=== PATIENT | female | born 1960 | race African-American/Black ===

== ENCOUNTER 2023-08-31 10:37 | Inpatient (IN) ==
--- NOTE | 2023-08-31 10:41 | Emergency Department Note ---
Impression & Plan SVT (supraventricular tachycardia), History of pulmonary embolism, Elevated troponin, Metabolic acidosis, normal anion gap (NAG) ED Provider Note NAME: JENELLE MENDOZA AGE: 62 SEX: F : 1960 ARRIVES VIA: Ambulance INFORMANT: Patient, triage note, prior records ED PROVIDER(S): Stan Delong MD CHIEF COMPLAINT: Elevated heart rate, dizziness, shortness of breath, outpatient referral MEDICAL DECISION MAKING: Patient presented due to concern for elevated heart rate was noted to be in SVT. IV was established and blood work was obtained. Patient was given 6 mg of IV adenosine the patient reverted into a sinus rhythm. Repeat EKG obtained which confirmed patient sinus rhythm. Blood work shows a normal white count H&H and platelet count kidney function is unremarkable. Non-anion nonanion gap metabolic acidosis noted with the patient does have a low bicarb but is hyperchloremic. I did discuss this w/ Dr. King. He stated he just recommended outpatient follow-up and repeat blood work to assess the NAGMA. Patient w/ elevated troponin. Patient's initial EKGs did show ST depressions in the lateral leads. This has resolved since we given the adenosine and resumption of a normal sinus rhythm likely demand from elevated HR. Given the patient's positive troponin and I did speak with the on-call hospitalist service CHANI Dickerson and the patient was admitted to the medicine service. I did inform the patient the patient's family the findings and recommendations and they are currently comfortable with plan of care. Patient does have a prior history of PE not on any anticoagulation they did recently drive to [facility] but no calf pain or asymmetry no evidence of DVT on exam. Critical Care: I have personally spent 35 minutes of critical care time in direct management of this patient. This includes bedside care, interpretation of diagnostic studies, and testing, discussion with consultants, patient, and family members, and other require inpatient management activities. This 35 minutes is in excess of all separately billable procedures. Discussion w/ other healthcare providers: Dr. Lujan with nephrology CHANI Dickerson and Dr. Cervantes Prior /Outside records reviewed: I reviewed a prior PCP visit note show the patient did have a prior history of PE noted but would need 6 months of blood thinning medications at that time. PCP visit note is from Dr. Denis from June 24, 2021 Differential diagnosis: Benign positional vertigo, dehydration, hypovolemia, anemia, infection, hypoglycemia, electrolyte abnormalities, arrhythmia, tox among others were considered. Diagnostics, as interpreted by me: ECG: Prehospital EKG noted heart rate 176 with a likely SVT with a normal axis normal QRS duration slight depressions in the lateral leads. Emergency department EKG interpreted by myself Supraventricular tachycardia rate of 171, normal axis, no ST elevations, ST depressions in the lateral leads normal QRS duration. Repeat EKG interpreted by myself Normal sinus rhythm, rate 79, normal intervals, normal axis no ST elevations or TWI. Cardiac monitoring: An order was placed for continuous cardiac monitoring. The monitor shows a rate of 175 with tachycardic and regular rhythm. Patient was placed on pulse oximetry Medical decision rules: None Imaging studies: I informally interpreted the patient's chest x-ray does not show obvious pneumonia or pneumothorax with formal report to follow. HPI: Patient presents due to concern for palpitations lightheadedness dizziness and shortness of breath. The patient states that she noticed this this morning when she was getting up and felt this to be positional when she bent over to do tie her shoes she had worsening symptoms. Patient states that she does feel improved compared to prior. Patient does have a prior history of A-fib. Patient denies any chest pains. The patient's lightheadedness dizziness and shortness of breath have improved compared to prior. Patient states that she does take her metoprolol and did take this morning. Currently not on blood thinning medication. The patient did have prior follow-up with Dr. Ramirez as well as another comber fixer but currently does not have an established comber fixer at [facility]. Patient denies any nausea vomiting or diarrhea. The patient does have prior history of thyroid disease and does take levothyroxine which was increased about 3 months ago from 50 mcg to 88 mcg. Patient denies any alcohol tobacco or drug use. She states that she is compliant with her medications PAST MEDICAL HISTORY: See Below PAST SURGICAL HISTORY: See Below SOCIAL HISTORY: See Below HOME MEDICATIONS: See Below ALLERGIES: See Below VITALS: See Below PHYSICAL EXAMINATION: GENERAL: NAD, non-toxic. EYE EXAM: Normal conjunctiva. PERRL, no anisocoria and EOM's grossly intact w/o pain. OROPHARYNX: Moist mucus membranes, grossly normal dentition. NECK: Trachea midline, no stridor. Supple, no nuchal rigidity, no adenopathy, non-tender. No signs of meningismus. FROM of the neck with good chin to chest and neck extension. LUNGS: Clear to auscultation. Normal chest wall mechanics. HEART: NSR, no MRG. ABDOMEN: Abdomen soft, non-tender, no masses, no rebound or guarding. BACK: No CVA TTP. SKIN: No rashes and no bruising. UPPER EXTREMITIES: Upper extremities are grossly normal. LOWER EXTREMITIES: Grossly normal, no edema. NEURO EXAM: A&O x3, cranial nerves II-XII grossly intact, normal speech, moves all 4 extremities. Past Med/Surg History Problem List (Updated 08/31/23 @ 14:54 by Stan Delong MD) Metabolic acidosis, normal anion gap (NAG) (Acute) Elevated troponin (Acute) History of pulmonary embolism (Acute) SVT (supraventricular tachycardia) (Acute) Pelvic pain Increased frequency of urination Osteoarthritis of knees, bilateral Morbid obesity with BMI of 50.0-59.9, adult Subclinical hypothyroidism Multiple thyroid nodules Cervical cancer screening Hypertension Fibroids Endometrial thickening on ultrasound Surgical History H/O hernia repair Hx laparoscopic cholecystectomy History of bilateral tubal ligation Family History Aunt Breast cancer maternal Denies family history of Ovarian cancer Colorectal cancer Social History Smoking Status: Former smoker Tobacco Type: Cigarettes Do You Dip or Chew Tobacco: No; Preferred Language: Macedonian Feels Safe at Home: Yes Allergies Allergies Allergy/AdvReac Type Severity Reaction Status Date / Time No Known Allergies Allergy Verified 05/29/23 10:44 Home Meds Home Medications Medication Instructions Recorded Confirmed metoprolol succinate 25 mg 25 mg PO QAM 02/16/20 05/29/23 tablet,extended release 24 hr acetaminophen 500 mg tablet 1,000 mg PO Q6H PRN Pain 08/13/22 05/29/23 (Tylenol Extra Strength) Previous Rx's Medication Instructions Recorded levothyroxine 88 mcg tablet 88 mcg PO DAILY #90 tabs 03/27/23 Results & Data (ED) Vital Signs Vital Signs - 24 hr 08/31/23 10:41 08/31/23 10:54 08/31/23 10:55 Temperature 36.6 C Temperature Source Oral Pulse Rate 179 H 170 H 171 H Pulse Rate [Apical] Pulse Rate from SpO2 Sensor 172 H Pulse Rhythm [Apical] Pulse Strength [Apical] Respiratory Rate 18 20 Respiratory Effort / Characteristics Non-Labored Spontaneous Respiratory Depth Normal Respiratory Pattern Regular Blood Pressure 115/87 Blood Pressure [Right Arm] Blood Pressure Mean 96 Blood Pressure Mean [Right Arm] Blood Pressure Position Sitting Blood Pressure Position [Right Arm] Pulse Oximetry 100 98 Oxygen Delivery Method Room Air Sepsis Recent Fever Within 48 Hours No Sepsis New/Unexplained Change in Mental Status No Sepsis Action Taken by Nursing No Action Required 08/31/23 11:03 08/31/23 11:10 08/31/23 11:12 Temperature Temperature Source Pulse Rate 78 81 76 Pulse Rate [Apical] Pulse Rate from SpO2 Sensor 79 78 Pulse Rhythm [Apical] Pulse Strength [Apical] Respiratory Rate 27 H 20 Respiratory Effort / Characteristics Respiratory Depth Respiratory Pattern Blood Pressure 109/85 Blood Pressure [Right Arm] Blood Pressure Mean 93 Blood Pressure Mean [Right Arm] Blood Pressure Position Blood Pressure Position [Right Arm] Pulse Oximetry 99 100 Oxygen Delivery Method Sepsis Recent Fever Within 48 Hours Sepsis New/Unexplained Change in Mental Status Sepsis Action Taken by Nursing 08/31/23 11:27 08/31/23 11:30 08/31/23 11:42 Temperature Temperature Source Pulse Rate 72 75 Pulse Rate [Apical] Pulse Rate from SpO2 Sensor 73 74 Pulse Rhythm [Apical] Pulse Strength [Apical] Respiratory Rate 14 12 Respiratory Effort / Characteristics Respiratory Depth Respiratory Pattern Blood Pressure 124/78 Blood Pressure [Right Arm] Blood Pressure Mean 96 Blood Pressure Mean [Right Arm] Blood Pressure Position Blood Pressure Position [Right Arm] Pulse Oximetry 100 99 Oxygen Delivery Method Sepsis Recent Fever Within 48 Hours Sepsis New/Unexplained Change in Mental Status Sepsis Action Taken by Nursing 08/31/23 11:44 08/31/23 12:15 08/31/23 12:36 Temperature Temperature Source Pulse Rate 78 67 Pulse Rate [Apical] 75 Pulse Rate from SpO2 Sensor 80 67 Pulse Rhythm [Apical] Regular Pulse Strength [Apical] Respiratory Rate 17 14 15 Respiratory Effort / Characteristics Non-Labored Respiratory Depth Normal Respiratory Pattern Regular Blood Pressure Blood Pressure [Right Arm] 92/69 L Blood Pressure Mean Blood Pressure Mean [Right Arm] 76 Blood Pressure Position Blood Pressure Position [Right Arm] Semi-fowlers Pulse Oximetry 96 98 97 Oxygen Delivery Method Room Air Sepsis Recent Fever Within 48 Hours Sepsis New/Unexplained Change in Mental Status Sepsis Action Taken by Nursing 08/31/23 13:00 08/31/23 13:00 08/31/23 13:30 Temperature Temperature Source Pulse Rate 74 74 59 L Pulse Rate [Apical] Pulse Rate from SpO2 Sensor 76 76 59 L Pulse Rhythm [Apical] Pulse Strength [Apical] Respiratory Rate 18 18 19 Respiratory Effort / Characteristics Respiratory Depth Respiratory Pattern Blood Pressure 114/77 Blood Pressure [Right Arm] Blood Pressure Mean 92 Blood Pressure Mean [Right Arm] Blood Pressure Position Blood Pressure Position [Right Arm] Pulse Oximetry 99 99 99 Oxygen Delivery Method Sepsis Recent Fever Within 48 Hours Sepsis New/Unexplained Change in Mental Status Sepsis Action Taken by Nursing 08/31/23 13:51 08/31/23 14:05 08/31/23 14:17 Temperature Temperature Source Pulse Rate 59 L 67 Pulse Rate [Apical] 63 Pulse Rate from SpO2 Sensor 58 L Pulse Rhythm [Apical] Regular Pulse Strength [Apical] Normal Respiratory Rate 17 15 17 Respiratory Effort / Characteristics Non-Labored Spontaneous Respiratory Depth Normal Respiratory Pattern Regular Blood Pressure 124/85 Blood Pressure [Right Arm] 124/85 Blood Pressure Mean 98 Blood Pressure Mean [Right Arm] 98 Blood Pressure Position Blood Pressure Position [Right Arm] Semi-fowlers Pulse Oximetry 100 99 Oxygen Delivery Method Room Air Sepsis Recent Fever Within 48 Hours Sepsis New/Unexplained Change in Mental Status Sepsis Action Taken by [facility] Medications Current Medication List: was personally reviewed by me Laboratory Data Attestation: I reviewed the patient's lab results. 08/31/23 10:45 08/31/23 11:49 Lab Results 08/31/23 08/31/23 08/31/23 Range/Units 10:45 11:49 13:51 WBC 9.68 (4.8-10.8) K/ul RBC 5.39 (4.20-5.40) M/uL Hgb 14.4 (12.0-16.0) g/dl Hct 43.2 (37.0-47.0) % MCV 80.1 (80.0-100.0) fL MCH 26.7 (25.0-34.0) pg MCHC 33.3 (32.0-36.0) g/dL RDW Std Deviation 42.0 (36.4-46.3) fL RDW Coeff of Su 14.5 (11.5-14.5) % Plt Count 304 (130-400) K/uL MPV 11.1 (9.4-12.4) fL Immature Gran % (Auto) 0.4 % Neut % (Auto) 44.5 % Lymph % (Auto) 43.2 % [place] % (Auto) 9.8 % Eos % (Auto) 1.4 % Baso % (Auto) 0.7 % Neut # (Auto) 4.30 (1.40-6.50) K/uL Lymph # (Auto) 4.18 H (1.20-3.40) K/uL [place] # (Auto) 0.95 H (0.11-0.59) K/uL Eos # (Auto) 0.14 (0.00-0.50) K/uL Baso # (Auto) 0.07 (0.00-0.20) K/uL Immature Gran # (Auto) 0.04 (0.01-0.20) K/uL PT 10.6 (9.0-12.0) Seconds INR 1.0 (0.9-1.1) APTT 21 (21-31) Seconds PTT Ratio 0.8 Sodium 138 (136-145) mmol/L Potassium TNP 3.8 Chloride 112 H (98-107) mmol/L Carbon Dioxide 18 L (21-32) mmol/L Anion Gap 8 (3-11) BUN 25 H (6-23) mg/dl Creatinine 1.05 (0.6-1.2) mg/dl Est Cr Clr Drug Dosing 72.2 ml/min Est GFR ( Amer) 65.5 ml/min Est GFR (Non-Af Amer) 56.5 ml/min BUN/Creatinine Ratio 23.8 H (10-20) Glucose 109 H (70-99(Fasting)) mg/dl Calcium 10.3 (8.6-10.3) mg/dl Magnesium 2.0 (1.7-2.4) mg/dl Total Bilirubin 0.4 (0.2-1.0) mg/dl AST TNP 12 L ALT 7 (7-52) U/L Alkaline Phosphatase 65 (34-104) U/L Troponin I High Sens 32.9 H 102.2 H* D (0-14) pg/ml Total Protein 7.6 (6.0-8.3) gm/dl Albumin 3.7 (3.4-5.0) gm/dl Globulin 3.9 (2.5-4.0) gm/dl Albumin/Globulin Ratio 0.9 (0.9-2) TSH 0.370 (0.300-4.500) uIu/ml Administered Medications Discontinued Medications Adenosine (Adenosine Iv Soln 3 Mg/Ml 2 Ml Vial) 6 mg IV NOW STA Stop: 08/31/23 10:50 Last Admin: 08/31/23 11:01 Dose: 6 mg Documented By: AMERICO Aspirin (Aspirin Chew 324 Mg) 324 mg PO NOW STA Stop: 08/31/23 13:05 Last Admin: 08/31/23 13:23 Dose: 324 mg Documented By: MICHELLE Sodium Chloride (Nss) 500 mls @ 999 mls/hr IV .Q31M STA Stop: 08/31/23 11:19 Last Infusion: 08/31/23 11:37 Dose: Infused Documented By: Admin: 08/31/23 11:01 Dose: 999 mls/hr Documented By: AMERICO Sodium Chloride (Nss) 500 mls @ 999 mls/hr IV .Q31M ONE Stop: 08/31/23 12:27 Last Infusion: 08/31/23 12:55 Dose: Infused Documented By: Admin: 08/31/23 12:11 Dose: 999 mls/hr Documented By: MICHELLE Imaging Data Radiologist's Impression: Chest X-Ray 08/31/23 10:51 SINGLE VIEW CHEST CLINICAL HISTORY: Dysrhythmia FINDINGS: An AP, portable, upright chest radiograph is compared to study dated 02/12/2021 and correlated with chest CT dated 08/13/2022. The examination is degraded by portable technique and apical lordotic positioning. The heart is mildly enlarged. The pulmonary vasculature is noncongested. The lungs and pleural spaces are clear. No pneumothorax is seen. The bony thorax is grossly intact. IMPRESSION: No acute cardiopulmonary abnormality. ACT 112: Negative or not required by law. Electronically signed by: Ariel Macias M.D. 08/31/2023 11:26 AM Discharge Plan Visit Data Chief Complaint: Cardiac Assessment Stated Complaint: SOB ED Provider: Stan Delong Discharge Problem: SVT (supraventricular tachycardia), History of pulmonary embolism, Elevated troponin, Metabolic acidosis, normal anion gap (NAG) Forms Stand Alone Forms: [facility] [employer] Prescriptions Prescriptions: No Action metoprolol succinate 25 mg tablet extended release 24 hr 25 mg PO QAM levothyroxine 88 mcg tablet 88 mcg PO DAILY Qty: 90 3RF Rx Instructions: Take one tablet by mouth 30-40 minutes before any other oral intake. acetaminophen [Tylenol Extra Strength] 500 mg Tablet 1,000 mg PO Q6H PRN (Reason: Pain) Referrals Referrals: PCP,NO [Primary Care Provider] -
[2023-08-31] MEDS: SODIUM CHLORIDE 0.9% 500 ML IV STA (11:01)
[2023-08-31] MEDS: ADENOSINE IV SOLN 3 MG/ML 2 ML VIAL IV STA (11:01)
[2023-08-31 11:24] LABS: Basophils # (auto) 0.07 K/uL (0.00-0.20); Basophils % (auto) 0.7 %; Eosinophils # (auto) 0.14 K/uL (0.00-0.50); Eosinophils % (auto) 1.4 %; Hematocrit (blood only) 43.2 % (37.0-47.0); Hemoglobin 14.4 g/dl (12.0-16.0); Immature Granulocytes # (auto) 0.04 K/uL (0.01-0.20); Immature Granulocytes % (auto) 0.4 %; Lymphocytes # (auto) 4.18 K/uL (1.20-3.40); Lymphocytes % (auto) 43.2 %; Mean Corpuscular Hemoglobin 26.7 pg (25.0-34.0); Mean Corpuscular Hgb Conc 33.3 g/dL (32.0-36.0); Mean Corpuscular Volume 80.1 fL (80.0-100.0); Mean Platelet Volume 11.1 fL (9.4-12.4); Monocytes # (auto) 0.95 K/uL (0.11-0.59); Monocytes % (auto) 9.8 %; Neutrophils % (auto) 44.5 %; Platelet Count 304 K/uL (130-400); RDW Coefficient of Variation 14.5 % (11.5-14.5); Red Blood Count 5.39 M/uL (4.20-5.40); White Blood Count 9.68 K/ul (4.8-10.8)
--- NOTE | 2023-08-31 11:28 | XRay Report ---
SINGLE VIEW CHEST CLINICAL HISTORY: Dysrhythmia FINDINGS: An AP, portable, upright chest radiograph is compared to study dated 02/12/2021 and correla pradeep with chest CT dated 08/13/2022. The examination is degraded by portable technique and apical lordo tic positioning. The heart is mildly enlarged. The pulmonary vasculature is noncongested. The lungs a nd pleural spaces are clear. No pneumothorax is seen. The bony thorax is grossly intact. IMPRESSION: No acute cardiopulmonary abnormality. ACT 112: Negative or not required by law. Electronically signed by: Ariel Macias M.D. 08/31/2023 11:26 AM
[2023-08-31 11:45] LABS: Alanine Aminotransferase 7 U/L (7-52); Albumin Globulin Ratio 0.9 (0.9-2); Albumin Level 3.7 gm/dl (3.4-5.0); Alkaline Phosphatase 65 U/L (34-104); Anion Gap 8 (3-11); BUN Creatinine Ratio 23.8 (10-20); Bilirubin,Total 0.4 mg/dl (0.2-1.0); Blood Urea Nitrogen 25 mg/dl (6-23); Calcium 10.3 mg/dl (8.6-10.3); Carbon Dioxide 18 mmol/L (21-32); Chloride 112 mmol/L (98-107); Creatinine Clr Calc Pharmacy 72.2 ml/min; Est GFR (African American) 65.5 ml/min; Est GFR (Non-African American) 56.5 ml/min; Globulin 3.9 gm/dl (2.5-4.0); Glucose 109 mg/dl (70-99(Fasting)); Sodium 138 mmol/L (136-145); Total Protein 7.6 gm/dl (6.0-8.3)
[2023-08-31 11:46] LABS: Partial Thromboplastin Ratio 0.8; Partial Thromboplastin Time 21 Seconds (21-31); Prothrombin Time 10.6 Seconds (9.0-12.0)
[2023-08-31] MEDS: SODIUM CHLORIDE 0.9% 500 ML IV ONE (12:11)
[2023-08-31 12:19] LABS: Potassium 3.8 mmol/L (3.5-5.1)
[2023-08-31 12:45] LABS: Troponin I High Sensitivity 32.9 pg/ml (0-14)
[2023-08-31] MEDS: ASPIRIN CHEW 324 MG PO STA (13:23)
[2023-08-31] MEDS ORDERED: ONDANSETRON INJ 2 MG/ML 2 ML VIAL IV PRN (13:44)
[2023-08-31] MEDS ORDERED: POLYETHYLENE (MIRALAX) 17 GM PACK PO PRN (13:44)
[2023-08-31] MEDS ORDERED: MAGNESIUM HYDROXIDE SUSP 30 ML UDC PO PRN (13:44)
[2023-08-31] MEDS ORDERED: ALUMINUM/MAGNESIUM SUSP 30 ML UDC PO PRN (13:44)
--- NOTE | 2023-08-31 13:56 | History & Physical Report ---
Date of Service August 31, 2023 Assessment & Plan (1) SVT (supraventricular tachycardia): (2) History of pulmonary embolism: (3) Morbid obesity with BMI of 50.0-59.9, adult: (4) Subclinical hypothyroidism: (5) Multiple thyroid nodules: (6) Hypertension: Plan Ms. Olivia is a 62 year old female that woke up this morning and felt dizzy, lightheaded and hot. She started to feel palpitations and to the clinic sent her over to [facility]. In the ED ECG revealed ST depression that appeared to be improving comparatively. She was noted to have monomorphic SVT. Chest x-ray in the ED was negative for acute cardiopulmonary disease. No leukocytosis, electrolytes normal; potassium 3.8, mag 2.0. She was placed on ACLS pads and was given adenosine 6 mg x 1 along with an loading dose of aspirin 324 mg. She converted to normal sinus rhythm after adenosine push. Patient denies any caffeine or energy drink intake. She reports drinking 10-12 bottles of water per day. She does report increased salt use and has consumed 1 vitamin water with lemonade that does have caffeine in it yesterday. Patient has history of PE in 2020 that appears provoked by sedentary sitting for travel as they drive from [place] to [place] often. PMH includes AF, PE (on AC x6 months in 2021), HTN, hypothyrioidism, and GERD. She denies tobacco, social alcohol use and no recreational drug use including medical marijuana. Most recent ECHO: 11/2022; LV wall motion normal. No signs of AR/MR/TR. Patient denies BOLDEN, dizziness, Chest pain, N/V/D, recent falls or trauma. When I walked into the room she was just getting back into bed from walking to the bathroom. She was winded with her sentences but was saturating well and was able to talk in complete sentences. Her shortness of breath resolved momentarily. She is AOx4 and her breath sounds is clear to auscultation. She does have some discomfort in her left popliteal area indicating positive Homans' sign. No redness or erythema. She does note having varicose veins on both of her lower extremities. No pain with ambulation or walking. Patient will be admitted for further evaluation and management of SVT. Likely troponin elevation suspect this is all related to ischemic demand; as patient converted to NSR after Adenosine x1, will obtain ECHO, trend Trop, given bump in troponin and history will obtain Chest CTA PE protocol, LE US Doppler, gentle IVF, and keep NPO after MN pending any abnormalities on further testing that would warrant cardiac intervention. Monomorphic SVT: Acute SVT noted on ECG; HR as high as 179. No leukocytosis WBC 9.68 Mg+ 2.0 Adenosine x1 administered in ED 500 NSB x2 given in ED Was loaded with ASA 324 Trop in ED 32.9; suspect related to ischemic demand from SVT; will trend Most recent ECHO: 11/2022; LV wall motion normal. No signs of AR/MR/TR. Repeat ECHO ordered Check UA. Given history of PE as outlined below and R popliteal calf pain; will obtain Chest CTA and B/L LE doppler US Chest CTA negative for PE Gentle IVF @ 80mL/hour x2 bags for Chest CT. History of Atrial Fibrillation: Chronic Was diagnosed in [place] years ago Had a heart monitor in the past which was normal Gets intermittent palpitations Chest CTA in 07/2022: There is a trace right pleural effusion. No pericardial effusion. 12 mm left thyroid nodule, unchanged History of PE: Chronic Occurred in 2020 Was on A/C x6 months; Eliquis Provoked by sedentary movement while traveling by car from [place] --> [place] and back again Hypothyroidism: Thyroid Nodules: Chronic TSH today: 0.3870 Takes Levothyroxine 88mcg daily;continue Chest CTA 07/2022: 12 mm left thyroid nodule, unchanged. No nodules noted on Chest CTA today Could possibly consider lowering dose of levothyroxine given her borderline hyperthyroid state of TSH. Reports that her dose was increased a few months ago. Recommend Endocrine follow up HTN: Chronic Takes Metoprolol; continue Disposition: PCP; Dr. Gallagher Code Status: Full Code VTE Prophylaxis: Lovenox SQ I spent a total of 87 minutes coordinating, documenting, and providing care for this patient excluding time spent in the performance of separately billed se rvices. All of the aforementioned completed while collaborating with the assigned attending physician for a full treatment plan. Please see their addendum for further details. History of Present Illness Chief Complaint: palpitations/ SVT Primary Care Provider: Dr. Gallagher Ms. Olivia is a 62 year old female That woke up this morning and felt dizzy, lightheaded and hot while she was putting her shoes on to go to a weight management office appointment. Upon arrival she started to feel palpitations and to the clinic sent her over to [facility]. In the ED ECG revealed ST depression that appeared to be improving comparatively. She was noted to have monomorphic SVT. Chest x-ray in the ED was negative for acute cardiopulmonary disease. No leukocytosis, electrolytes normal; potassium 3.8, mag 2.0. She was placed on ACLS pads and was given adenosine 6 mg x 1 along with an loading dose of aspirin 324 mg. She converted to normal sinus rhythm after adenosine push. Patient denies any caffeine or energy drink intake. She reports drinking 10-12 bottles of water per day. She does report increased salt use and has consumed 1 vitamin water with lemonade that does have caffeine in it yesterday. Patient has history of PE in 2020 that appears provoked by sedentary sitting for travel as they drive from [place] to [place] often. PMH includes AF, PE (on AC x6 months in 2021), HTN, hypothyrioidism, and GERD. Chest CTA 07/2022: There is a trace right pleural effusion. No pericardial effusion. 12 mm left thyroid nodule, unchanged She denies tobacco, social alcohol use and no recreational drug use including medical marijuana. Most recent ECHO: 11/2022; LV wall motion normal. No signs of AR/MR/TR. Patient denies BOLDEN, fever, chills, cough, recent other travel, visual or auditory changes, dizziness, chest pain, N/V/D, recent falls or trauma. When I walked into the room she was just getting back into bed from walking to the bathroom. She was winded with her sentences but was saturating well and was able to talk in complete sentences. Her shortness of breath resolved momentarily. She is AOx4 and her breath sounds is clear to auscultation. She does have some discomfort in her left popliteal area indicating positive Homans' sign. No redness or erythema. She does note having varicose veins on both of her lower extremities. No pain with ambulation or walking. No wounds or other upper respiratory symptoms. Currently chest pain and palpitations free. Patient will be admitted for further evaluation and management of SVT. Likely troponin elevation suspect this is all related to ischemic demand; as patient converted to NSR after Adenosine x1, will obtain ECHO, trend Trop, given bump in troponin and history will obtain Chest CTA PE protocol, LE US Doppler, gentle IVF, and keep NPO after MN pending any abnormalities on further testing that would warrant cardiac intervention. Could possibly consider lowering dose of levothyroxine given her borderline hyperthyroid state of TSH. Reports that her dose was increased a few months ago. Allergies Allergy/AdvReac Type Severity Reaction Status Date / Time No Known Allergies Allergy Verified 05/29/23 10:44 Home Medications Medication Instructions Recorded Confirmed Type metoprolol succinate 25 mg 25 mg PO QAM 02/16/20 08/31/23 History tablet,extended release 24 hr acetaminophen 500 mg tablet 1,000 mg PO Q6H PRN Pain 08/13/22 08/31/23 History (Tylenol Extra Strength) levothyroxine 88 mcg tablet 88 mcg PO DAILY #90 tabs 03/27/23 08/31/23 Rx Past Med/Surg History Problem List (Updated 08/31/23 @ 14:54 by Stan Delong MD) Metabolic acidosis, normal anion gap (NAG) (Acute) Elevated troponin (Acute) History of pulmonary embolism (Acute) SVT (supraventricular tachycardia) (Acute) Pelvic pain Increased frequency of urination Osteoarthritis of knees, bilateral Morbid obesity with BMI of 50.0-59.9, adult Subclinical hypothyroidism Multiple thyroid nodules Cervical cancer screening Hypertension Fibroids Endometrial thickening on ultrasound Surgical History H/O hernia repair Hx laparoscopic cholecystectomy History of bilateral tubal ligation Family History Aunt Breast cancer maternal Denies family history of Ovarian cancer Colorectal cancer Social History Smoking Status: Former smoker Tobacco Type: Cigarettes Do You Dip or Chew Tobacco: No; Hx Alcohol Use: No Hx Substance Use: No Preferred Language: Libyan Equipment Records Supervisor Required: No Beliefs That Will Affect Care: None Current Living Situation: Family Current Living Situation Comment: lives with 2 daughters Feels Safe at Home: Yes Safety Concerns: Feels Safe At This Time Assistive Devices: Walker Review of Systems Review of Systems: Neuro: (-) Falls, trauma, slurred speech HEENT: (-) BOLDEN, dizziness, dysphagia, visual or auditory changes CV: (-) CP, palpitations, swelling Resp: (-) SOB GI: (-) appetite changes, N/V/D, bowel changes : (-) urinary changes Skin: (-) rashes Psych: (-) anxiety, depression Physical Exam Physical Exam: Neuro: AAOx4, PERRLA, no aphagia, memory changes, CNII-XII grossly intact HEENT: head normocephalic, moist mucus membranes CV: S1/S2, (-) M/G/R, (-) edema, cap refill < 3 seconds Resp: Lungs CTA in all galindo. On RA. GI: Abdomen S/NT/ND, Ax4 bowel sounds, (-) CVA tenderness Musculoskeletal: 5/5 B/L UE strength, 5/5 B/L LE strength. No gait disturbance. (+) jason sign RLE. (-) erythema. Skin: (-) rashes , (-) erythema. Psych: euthymic mood Results & Data Results & Data Vital Signs (Past 12 Hours) Vital Signs Temp Pulse Pulse Resp BP BP Pulse Ox 08/31/23 11:44 75 17 92/69 L 96 08/31/23 11:12 76 20 109/85 100 08/31/23 11:10 81 08/31/23 11:03 78 27 H 99 08/31/23 10:55 171 H 08/31/23 10:54 170 H 20 98 08/31/23 10:41 36.6 C 179 H 18 115/87 100 O2 Del Method 08/31/23 11:44 Room Air 08/31/23 11:12 08/31/23 11:10 08/31/23 11:03 08/31/23 10:55 08/31/23 10:54 08/31/23 10:41 Room Air Laboratory Results Short CBC 08/31/23 Range/Units 10:45 WBC 9.68 (4.8-10.8) K/ul Hgb 14.4 (12.0-16.0) g/dl Hct 43.2 (37.0-47.0) % Plt Count 304 (130-400) K/uL BMP 08/31/23 08/31/23 10:45 11:49 Sodium 138 Potassium TNP 3.8 Chloride 112 H Carbon Dioxide 18 L BUN 25 H Creatinine 1.05 Glucose 109 H Calcium 10.3 Liver Function 08/31/23 08/31/23 Range/Units 10:45 11:49 Total Bilirubin 0.4 (0.2-1.0) mg/dl AST TNP 12 L ALT 7 (7-52) U/L Alkaline Phosphatase 65 (34-104) U/L Albumin 3.7 (3.4-5.0) gm/dl Diagnostic Findings Chest X-Ray 08/31/23 10:51 SINGLE VIEW CHEST CLINICAL HISTORY: Dysrhythmia FINDINGS: An AP, portable, upright chest radiograph is compared to study dated 02/12/2021 and correlated with chest CT dated 08/13/2022. The examination is degraded by portable technique and apical lordotic positioning. The heart is mildly enlarged. The pulmonary vasculature is noncongested. The lungs and pleural spaces are clear. No pneumothorax is seen. The bony thorax is grossly intact. IMPRESSION: No acute cardiopulmonary abnormality. ACT 112: Negative or not required by law. Electronically signed by: Ariel Macias M.D. 08/31/2023 11:26 AM Code Status & VTE Plan Code Status Full Code in the event of cardiac or respiratory arrest VTE Prophylaxis Plan VTE Prophylaxis will be ordered: Yes Supervising Physician Co-Signing Physician Notes 62-year-old lady with PMH of hypothyroidism, intermittent palpitation, history of A-fib diagnosed many years ago per patient but not on anticoagulation, history of PE status post 6 months of Eliquis presented with complaint of palpitation associated with some shortness of breath and lightheadedness. Patient denies fever/sore throat/cough/chest pain/belly pain/acute changes in appetite, bowel and bladder habits. Patient noted to have monomorphic SVT, received adenosine in the ed, back to nsr. telemetry monitoring. Monitor and replete electrolytes. Cardiology. Echo. CTA chest and BLE Doppler to rule out DVT. likely demand ischemia, trend trop. pt w/ no chest pain. ekg w/ no acute st t changes. TSH low normal, could possibly decrease levothyroxine and repeat TFT in 6 weeks. On examination: GENERAL: Alert and oriented x3. NAD, on RA. Obese Class III. HEENT: No pallor, no icterus. Pupils equal, round and reactive to light. Oral mucosa moist. NECK: No JVD, no neck masses. HEART: S1 and S2 heard. Regular rate and rhythm. No murmur, no gallop. RESPIRATORY SYSTEM: Normal AP diameter. No accessory muscle use. No wheezing, no crackles. ABDOMEN: Soft, bowel sounds present, nontender, no distention. CENTRAL NERVOUS SYSTEM: No facial droop. Speech is clear. Obeys simple commands. Moves extremities. EXTREMITIES: No edema, no erythema seen. I have seen and examined the patient and have discussed the case with the provider above. I agree with the assessment and plan as stated.
[2023-08-31] MEDS: OPTIRAY 320 125ml IV ONE (16:00)
--- NOTE | 2023-08-31 16:17 | CT Scan Report ---
CT ANGIOGRAM OF THE CHEST CLINICAL HISTORY: Tachycardia COMPARISON STUDY: Chest CT dated 08/13/2022. Chest x-ray dated 08/31/2023. TECHNIQUE: Following the IV administration of 116 cc of Optiray 320, CT angiogram of the chest was pe rformed from the upper abdomen to the thoracic inlet utilizing the pulmonary embolus protocol. Images are reviewed in the axial, sagittal, and coronal planes. 3-D MIPS images are created and assessed. I V contrast was administered without complication. A dose lowering technique was utilized adhering to the principles of ALARA. CT DOSE: 960.92 mGy.cm FINDINGS: Thyroid: Atrophic. Thoracic aorta: The thoracic aorta is normal in caliber and demonstrates standard 3-vessel arch anato my. No dissection is seen. Pulmonary vasculature: The pulmonary trunk is normal in caliber. There are no filling defects identif ied in main, lobar, or segmental pulmonary branches to suggest pulmonary embolus. Heart: The heart is normal in size and without pericardial effusion. There are scattered coronary art trang calcifications. Lungs and pleural spaces: There is no airspace consolidation or pleural effusion. The trachea and jania tral airways are clear. Dependent atelectasis is seen at the lung bases. Mediastinum: There is no mediastinal lymphadenopathy. Marta: Clear. Axillae: There is no axillary lymphadenopathy. Upper abdomen: Partially visualized upper abdominal viscera is otherwise within normal limits. Skeletal structures: Cholecystectomy clips are noted. No lytic or blastic bony lesions are seen. IMPRESSION: 1. There is no evidence of pulmonary embolus in the main, lobar, or segmental pulmonary arteries. 2. The lungs are clear. ACT 112: Negative or not required by law. Electronically signed by: Ariel Macias M.D. 08/31/2023 4:14 PM
--- NOTE | 2023-08-31 16:52 | Ultrasound Report ---
BILATERAL LOWER EXTREMITY VENOUS DOPPLER HISTORY: Acute pain of the lower legs H/O PE. SVT and R leg pain COMPARISON STUDY: 05/06/2022 FINDINGS: There is normal compressibility, flow, and augmentation within the bilateral lower extremit y deep venous systems. IMPRESSION: No DVT within the right or left lower extremity. ACT 112: Negative or not required by law. Electronically signed by: Kenneth Pinto M.D. 08/31/2023 4:51 PM
--- NOTE | 2023-08-31 17:16 | Electrocardiogram Report ---
Test Reason : Blood Pressure : / mmHG Vent. Rate : 079 BPM Atrial Rate : 079 BPM P-R Int : 160 ms QRS Dur : 082 ms QT Int : 380 ms P-R-T Axes : 052 -03 042 degrees QTc Int : 435 ms Normal sinus rhythm Normal ECG When compared with ECG of 31-AUG-2023 10:44, (unconfirmed) Significant changes have occurred Confirmed by Clifford Smith ([id number]) on 08/31/2023 5:16:19 PM Referred By: REFERRED SELF Confirmed By:Clifford Smith
--- NOTE | 2023-08-31 17:16 | Electrocardiogram Report ---
Test Reason : Blood Pressure : / mmHG Vent. Rate : 171 BPM Atrial Rate : 000 BPM P-R Int : 000 ms QRS Dur : 068 ms QT Int : 266 ms P-R-T Axes : 000 012 213 degrees QTc Int : 448 ms Supraventricular tachycardia Marked ST abnormality, possible lateral subendocardial injury Abnormal ECG When compared with ECG of 13-AUG-2022 10:37, Vent. rate has increased BY 121 BPM Non-specific change in ST segment in Inferior leads ST now depressed in Anterolateral leads Confirmed by Clifford Smith ([id number]) on 08/31/2023 5:16:00 PM Referred By: REFERRED SELF Confirmed By:Clifford Smith
[2023-08-31] MEDS: ACETAMINOPHEN 325 MG TAB PO PRN (20:40)
[2023-08-31 22:04] LABS: Appearance Urine Clear (Clear); Bacteria Urine Automated None Seen (None Seen); Bilirubin Urine Negative (Negative); Blood Urine Negative (Negative); Cast Urine Automated 0-2 /lpf (0-2); Color Urine Yellow; Epithelial Cell Urine Auto 0-2 /hpf (0-2); Glucose Urine UA Negative (Negative); Ketones Urine Negative (Negative); Leukocyte Esterase Urine Trace (Negative); Nitrite Urine Negative (Negative); Protein Urine Negative (Negative); RBC Urine Automated 0-2 /hpf (0-2); Specific Gravity Urine 1.043 (1.000-1.030); Urobilinogen Urine Negative (Negative); WBC Urine Automated 0-5 /hpf (0-5); pH Urine 5.5 (4.5-7.5)
[2023-09-01] MEDS: SODIUM CHLORIDE 0.9% 1,000 ML IV SCH (03:16)
[2023-09-01] MEDS ORDERED: LEVOTHYROXINE SODIUM 88 MCG TABLET PO SCH (06:30)
[2023-09-01 06:33] LABS: Hematocrit (blood only) 37.8 % (37.0-47.0); Hemoglobin 12.6 g/dl (12.0-16.0); Mean Corpuscular Hemoglobin 26.8 pg (25.0-34.0); Mean Corpuscular Hgb Conc 33.3 g/dL (32.0-36.0); Mean Corpuscular Volume 80.3 fL (80.0-100.0); Mean Platelet Volume 10.9 fL (9.4-12.4); Platelet Count 248 K/uL (130-400); RDW Coefficient of Variation 14.6 % (11.5-14.5); RDW Standard Deviation 42.6 fL (36.4-46.3); Red Blood Count 4.71 M/uL (4.20-5.40); White Blood Count 7.71 K/ul (4.8-10.8)
[2023-09-01] MEDS: LEVOTHYROXINE SODIUM 75 MCG TABLET PO SCH (06:34)
[2023-09-01 06:48] LABS: BUN Creatinine Ratio 21.8 (10-20); Calcium 9.7 mg/dl (8.6-10.3); Creatinine Clr Calc Pharmacy 74.9 ml/min; Est GFR (African American) 68.6 ml/min; Est GFR (Non-African American) 59.2 ml/min
[2023-09-01 07:20] LABS: Estimated Average Glucose 105 mg/dl; Hemoglobin A1C 5.3 % (4.5-5.6)
--- NOTE | 2023-09-01 08:36 | Hospitalist Progress Note ---
Date of Service September 01, 2023 Assessment & Plan (1) SVT (supraventricular tachycardia): (2) History of pulmonary embolism: (3) Morbid obesity with BMI of 50.0-59.9, adult: (4) Subclinical hypothyroidism: (5) Multiple thyroid nodules: (6) Hypertension: Plan Pt is a 62yoF with PMhx significant for AF, PE (on anticoagulation x6 months in 2021), HTN, hypothyroidism, and GERD presenting with episodes of dizziness in the setting of SVT. Monomorphic SVT: SVT noted on ECG; HR as high as 179. Adenosine x1 administered in ED Converted to sinus rhythm Echo pending Chest CTA negative for PE Replete electrolytes as needed Cardiology consulted, appreciate recs History of Atrial Fibrillation: Was diagnosed in [place] years ago Had a heart monitor in the past which was normal Gets intermittent palpitations Chest CTA in 07/2022: There is a trace right pleural effusion. No pericardial effusion. 12 mm left thyroid nodule, unchanged Continue home metoprolol, not currently on anticoagulation at home Demand Ischemia Trops elevated 32.9 to 102.2 to 139.3 EKG as above noted SVT on admission Likely demand in setting of above History of PE: Occurred in 2020 Was on A/C x6 months; Eliquis Provoked by sedentary movement while traveling by car from [place] --> [place] and back again Venous doppler and Chest CTA with no evidence of DVT/PE respectively Hypothyroidism: Thyroid Nodules: TSH on admission: 0.3870 Takes Levothyroxine 88mcg daily;continue Chest CTA 07/2022: 12 mm left thyroid nodule, unchanged. No nodules noted on Chest CTA today Could possibly consider lowering dose of levothyroxine given her borderline hyperthyroid state of TSH. Reports that her dose was increased a few months ago. Follows with Endocrine Close Endocrine followup after discharge HTN: Takes Metoprolol; continue PCP; Dr. Gallagher Code Status: Full Code VTE Prophylaxis: Lovenox SQ Dispo: PT/OT ordered for further recommendations Admission and Anticipated Discharge Date Admission Date: August 31, 2023 Results & Data Results & Data Vital Signs (Past 12 Hours) Vital Signs Temp Pulse Pulse Resp BP Pulse Ox O2 Del Method 09/01/23 08:01 36.8 C 68 18 127/82 98 Room Air 09/01/23 02:11 36.8 C 58 L 18 113/77 97 Room Air 08/31/23 23:37 56 L 08/31/23 22:33 36.6 C 57 L 18 102/70 97 Room Air 08/31/23 21:14 61 08/31/23 21:02 Room Air Diagnostic Findings Chest X-Ray 08/31/23 10:51 SINGLE VIEW CHEST CLINICAL HISTORY: Dysrhythmia FINDINGS: An AP, portable, upright chest radiograph is compared to study dated 02/12/2021 and correlated with chest CT dated 08/13/2022. The examination is degraded by portable technique and apical lordotic positioning. The heart is mildly enlarged. The pulmonary vasculature is noncongested. The lungs and pleural spaces are clear. No pneumothorax is seen. The bony thorax is grossly intact. IMPRESSION: No acute cardiopulmonary abnormality. ACT 112: Negative or not required by law. Electronically signed by: Ariel Macias M.D. 08/31/2023 11:26 AM Venous Doppler Study 08/31/23 14:30 BILATERAL LOWER EXTREMITY VENOUS DOPPLER HISTORY: Acute pain of the lower legs H/O PE. SVT and R leg pain COMPARISON STUDY: 05/06/2022 FINDINGS: There is normal compressibility, flow, and augmentation within the bilateral lower extremity deep venous systems. IMPRESSION: No DVT within the right or left lower extremity. ACT 112: Negative or not required by law. Electronically signed by: Kenneth Pinto M.D. 08/31/2023 4:51 PM Chest CTA 08/31/23 14:47 CT ANGIOGRAM OF THE CHEST CLINICAL HISTORY: Tachycardia COMPARISON STUDY: Chest CT dated 08/13/2022. Chest x-ray dated 08/31/2023. TECHNIQUE: Following the IV administration of 116 cc of Optiray 320, CT angiogram of the chest was performed from the upper abdomen to the thoracic inlet utilizing the pulmonary embolus protocol. Images are reviewed in the axial, sagittal, and coronal planes. 3-D MIPS images are created and assessed. IV contrast was administered without complication. A dose lowering technique was utilized adhering to the principles of ALARA. CT DOSE: 960.92 mGy.cm FINDINGS: Thyroid: Atrophic. Thoracic aorta: The thoracic aorta is normal in caliber and demonstrates standard 3-vessel arch anatomy. No dissection is seen. Pulmonary vasculature: The pulmonary trunk is normal in caliber. There are no filling defects identified in main, lobar, or segmental pulmonary branches to suggest pulmonary embolus. Heart: The heart is normal in size and without pericardial effusion. There are scattered coronary artery calcifications. Lungs and pleural spaces: There is no airspace consolidation or pleural effusion. The trachea and central airways are clear. Dependent atelectasis is seen at the lung bases. Mediastinum: There is no mediastinal lymphadenopathy. Marta: Clear. Axillae: There is no axillary lymphadenopathy. Upper abdomen: Partially visualized upper abdominal viscera is otherwise within normal limits. Skeletal structures: Cholecystectomy clips are noted. No lytic or blastic bony lesions are seen. IMPRESSION: 1. There is no evidence of pulmonary embolus in the main, lobar, or segmental pulmonary arteries. 2. The lungs are clear. ACT 112: Negative or not required by law. Electronically signed by: Ariel Macias M.D. 08/31/2023 4:14 PM
--- NOTE | 2023-09-01 08:52 | Cardiology Consultation ---
Date of Consultation September 01, 2023 Assessment & Plan (1) SVT (supraventricular tachycardia): (2) Elevated troponin: (3) Paroxysmal atrial fibrillation: (4) Subclinical hypothyroidism: (5) Hypertension: Plan Assessment: 62 year-old female that presented to the ED in SVT, converted to NSR after one time dose of Adenosine 6mg IV push. History of Paroxysmal A-fib and P. SVT per review of records. Cardiology asked to further evaluate. Plan: 1. Supraventricular Tachycardia: 2. elevated troponin 3. Paroxysmal A-fib -History of both P. A-fib and P. SVT noted on prior protracted cardiac monitoring, but no evidence of prior sustained events. -Electrolytes stable. maintain serum K> 4.0 and serum Mag > 2.0 -No recent acute illness, concern of dehydration, no recent medication changes. Patient does endorse having a large caffeinated beverage the night before which she never drinks caffeine. While this may have attributed, it was several hours after the fact making it less likely. -Review of telemetry demonstrates SR with no acute events or ectopy overnight. -Troponin elevation likely ischemic demand s/t tachycardia. will continue to trend to peak. -Obtain echocardiogram to further assess overall structure and function -Patient currently on Metoprolol succinate 25mg QD with rates controlled. Pending echocardiogram may need to consider titration of dose. -TSH stable. Continue levothyroxine as per home regimen. -No evidence of A-fib this admission. Not currently on any oral AC therapies outpatient. -Discussed with patient that pending echo will determine our next course of action. -When patient is discharged, she will need to be set up to see EP outpatient. patient is agreeable -NPO pending labs and echo results. further recommendations pending. 4. Subclinical Hypothryoidism. -labs stable. continue current levothyroxine -management by primary team 5. HTN: -At target. -Continue Toprol xl, not currently on any other anti-hypertensive therapies. Case has been discussed with Dr. Miller. Further recommendations regarding plan of care as per his assessment. I spent a total of 40 minutes on the date of service in preparation, delivery, documentation of the care provided to the patient excluding any time spent in the performance of separately billed services. CHANI Estevez [facility] Cardiology [facility] Supervising Physician Co-Signing Physician Notes Patient seen and examined personally. Full assessment and plan as outlined above. Care and management discussed in detail with advanced provider 62-year-old female with possible past paroxysmal atrial fibrillation presented with EKG findings of supraventricular tachycardia with rapid response, symptomatic, heart rate 171 bpm Patient treated with adenosine 6 mg with prompt return to sinus rhythm. No further arrhythmias Troponins elevated likely secondary to acute tachycardia. EKG postconversion and echocardiogram normal No evidence of atrial fibrillation Discussed management treatment of supraventricular tachycardia in detail with Plan EP evaluation post hospital discharge Findings do not suggest acute coronary syndrome despite troponin elevation. Will arrange for stress nuclear imaging to complete evaluation post hospital With continue current dosing of Toprol Stable for discharge today History of Present Illness Reason for Consultation: SVT Requesting Physician: Dahlia parada Attending Physician: Sofia Bradshaw MD History of Present Illness HPI: Patient is a 62 year-old female that presented to the ED with complaints of dizziness, lightheadedness, flushing, profuse diaphoresis, and palpitations. Patient states that she woke feeling her usual state of health. She had developed initial palpitations with associated dizziness which she states "happens a lot", but continued on with getting ready for the day. She states that her symptoms had become more intense, but she had a new patient appt with the weight management clinic in front of the hospital ([facility]) that she did not want to miss, so she continued to get dressed and took the bus to the appointment. By the time she reached the appointment, she reports that her symptoms had continued to intensify and she was now profusly sweating. She was sent by ambulance to the ED for evaluation. Initial EKG demonstrated SVT, Rate 171bpm, converted after 1- 6mg IV push of Adenosine. marked ST abnormality Post conversion EKG NSR Rate 79bpm EKG today: SB Rate 59bpm Nonspecific ST and T wave abnormality High-sensitivity troponin 32.9/102.2/139.3 Chest X-ray: Negative CTA chest: Negative for PE or acute process Venous doppler B/L lower extremities: Negative for DVT PMHx: P. A-fib PE (believed provoked wit travel in 2020) HTN Hypothyroidism GERD Dyslipidemia Protracted cardiac monitoring dating back to 2022 showing PSVT Social history: Rare caffeine use No tobacco use Social ETOH use No illicit drug use patient states that she will get these symptoms often, but never this intense. they will last minutes to hours, but typically do not stop her from her usual routine and she just allows for them to resolve spontaneously. She reports a known history of only P. A-fib, and states the the symptoms feel identical. She also states that when she has this issue at home and her heart returns to "normal". she states that she will feel exactly as she did when she received the Adenosine yesterday. currently resting comfortably in bed. Denies any chest pain, pressure, palpitations, no shortness of breath, PND, pre-syncope, syncope or edema. Does endorse chronic leg pain (bilateral) and has varicose veins, but no formal evaluation of them. further review of [employer] system, does show her most recent Protracted cardiac monitoring dated back to 11/28/22 with a report as follows: CONCLUSIONS: Final Interpretation Indications: Heart disease Duration: 13 days, 22 hours Preliminary Findings Prepared by Yasir Cary, KENNY 12/18/22 Patient had a min HR of 38 bpm, max HR of 190 bpm, and avg HR of 64 bpm. Predominant underlying rhythm was Sinus Rhythm. 23 Supraventricular Tachycardia runs occurred, the run with the fastest interval lasting 7 mins 53 secs with a max rate of 190 bpm, the longest lasting 37 mins 46 secs with an avg rate of 142 bpm. Supraventricular Tachycardia was detected within +/- 45 seconds of symptomatic patient event(s). Isolated SVEs were rare (<1.0%), SVE Couplets were rare (<1.0%), and SVE Triplets were rare (<1.0%). Isolated VEs were rare (<1.0%), and no VE Couplets or VE Triplets were present. Patient recorded 3 event markers and 3 diary entries symptoms and markers correlated with sensed supraventricular tachycardia Impression: Sinus rhythm, average rate 64 beats per minute with paroxysmal supraventricular tachycardia longest episode 37 minutes in duration Allergies Allergy/AdvReac Type Severity Reaction Status Date / Time No Known Allergies Allergy Verified 05/29/23 10:44 Home Medications Medication Instructions Recorded Confirmed Type metoprolol succinate 25 mg 25 mg PO QAM 02/16/20 08/31/23 History tablet,extended release 24 hr acetaminophen 500 mg tablet 1,000 mg PO Q6H PRN Pain 08/13/22 08/31/23 History (Tylenol Extra Strength) levothyroxine 88 mcg tablet 88 mcg PO DAILY #90 tabs 03/27/23 08/31/23 Rx Patient History Surgical History H/O hernia repair Hx laparoscopic cholecystectomy History of bilateral tubal ligation Family History Aunt Breast cancer maternal Denies family history of Ovarian cancer Colorectal cancer Social History Smoking Status: Former smoker Tobacco Type: Cigarettes Do You Dip or Chew Tobacco: No; Hx Alcohol Use: No Hx Substance Use: No Preferred Language: Italian Fixing Carpenter Required: No Beliefs That Will Affect Care: None Current Living Situation: Family Current Living Situation Comment: lives with 2 daughters Feels Safe at Home: Yes Safety Concerns: Feels Safe At This Time Assistive Devices: None Review of Systems Review of Systems: All systems reviewed & are unremarkable except as noted in HPI & below Physical Exam Constitutional: + obese; no acute distress and not ill a ppearing Neck: normal visual inspection and trachea midline Respiratory: normal respiratory effort, lungs clear to auscultation no cough Auscultation: no crackles, no rales, no rhonchi and no wheezes Cardiovascular: Rate/Rhythm: regular rate and regular rhythm Heart Sounds: normal S1 and normal S2; no murmur Vessels: dorsalis pedis pulses present; no JVD Extremities: + varicosities; no edema Skin: no rashes, warm and dry Psychiatric: A+Ox3, euthymic affect Results & Data Vital Signs (Past 12 Hours) Vital Signs Temp Pulse Pulse Resp BP Pulse Ox O2 Del Method 09/01/23 08:01 36.8 C 68 18 127/82 98 Room Air 09/01/23 02:11 36.8 C 58 L 18 113/77 97 Room Air 08/31/23 23:37 56 L 08/31/23 22:33 36.6 C 57 L 18 102/70 97 Room Air 08/31/23 21:14 61 08/31/23 21:02 Room Air Laboratory Results Cardiac Enzymes 08/31/23 08/31/23 08/31/23 Range/Units 10:45 11:49 13:51 AST TNP 12 L Troponin I High Sens 32.9 H 102.2 H* D (0-14) pg/ml 08/31/23 09/01/23 Range/Units 18:44 09:32 AST Troponin I High Sens 139.3 H* D 45.8 H D (0-14) pg/ml Coagulation 08/31/23 Range/Units 10:45 PT 10.6 (9.0-12.0) Seconds APTT 21 (21-31) Seconds CBC 08/31/23 09/01/23 Range/Units 10:45 05:55 WBC 9.68 7.71 (4.8-10.8) K/ul RBC 5.39 4.71 (4.20-5.40) M/uL Hgb 14.4 12.6 (12.0-16.0) g/dl Hct 43.2 37.8 (37.0-47.0) % Plt Count 304 248 (130-400) K/uL Neut # (Auto) 4.30 (1.40-6.50) K/uL Lymph # (Auto) 4.18 H (1.20-3.40) K/uL [place] # (Auto) 0.95 H (0.11-0.59) K/uL Eos # (Auto) 0.14 (0.00-0.50) K/uL Baso # (Auto) 0.07 (0.00-0.20) K/uL Comprehensive Metabolic Panel 08/31/23 08/31/23 09/01/23 Range/Units 10:45 11:49 05:55 Sodium 138 141 (136-145) mmol/L Potassium TNP 3.8 4.0 Chloride 112 H 112 H (98-107) mmol/L Carbon Dioxide 18 L 25 (21-32) mmol/L BUN 25 H 22 (6-23) mg/dl Creatinine 1.05 1.01 (0.6-1.2) mg/dl Glucose 109 H 95 (70-99(Fasting)) mg/dl Calcium 10.3 9.7 (8.6-10.3) mg/dl AST TNP 12 L ALT 7 (7-52) U/L Alkaline Phosphatase 65 (34-104) U/L Total Protein 7.6 (6.0-8.3) gm/dl Albumin 3.7 (3.4-5.0) gm/dl Intake and Output 08/31/23 09/01/23 09/01/23 22:59 06:59 14:59 Intake Total 240 / 1240 0 / 1240 Balance 240 / 1240 0 / 1240 Intake: Oral 240 / 240 0 / 240 Other: # Unmeasured Voids 1 3 Weight 122 kg 126 kg Weight Measurement Method [facility]
[2023-09-01] MEDS: ENOXAPARIN INJ 40 MG/0.4 ML SYR SQ SCH (11:25)
[2023-09-01] MEDS: METOPROLOL SUCC 25MG EXT REL TAB PO SCH (11:25)
--- NOTE | 2023-09-01 12:51 | Electrocardiogram Report ---
Test Reason : Blood Pressure : / mmHG Vent. Rate : 059 BPM Atrial Rate : 059 BPM P-R Int : 170 ms QRS Dur : 080 ms QT Int : 430 ms P-R-T Axes : 022 -01 017 degrees QTc Int : 425 ms Poor data quality, interpretation may be adversely affected Sinus bradycardia Nonspecific ST and T wave abnormality Abnormal ECG When compared with ECG of 31-AUG-2023 11:04, No significant change was found Confirmed by Clifford Smith ([id number]) on 09/01/2023 12:50:42 PM Referred By: REFERRED SELF Confirmed By:Clifford Smith
--- NOTE | 2023-09-01 14:47 | Discharge Summary ---
Discharge Summary Date of Service September 01, 2023 Principal Dx & Hospital Course #1 = Principal Diagnosis (1) SVT (supraventricular tachycardia): (2) History of pulmonary embolism: (3) Morbid obesity with BMI of 50.0-59.9, adult: (4) Subclinical hypothyroidism: (5) Multiple thyroid nodules: (6) Hypertension: Plan Pt is a 62yoF with PMhx significant for AF, PE (on anticoagulation x6 months in 2021), HTN, hypothyroidism, and GERD presenting with episodes of dizziness in the setting of SVT. Monomorphic SVT: SVT noted on ECG; HR as high as 179. Adenosine x1 administered in ED, converted to sinus rhythm Echo with EF 60-65%, moderate LVH, normal wall motion of LV, Grade II diastolic dysfunction Chest CTA negative for PE Replete electrolytes as needed Cardiology consulted, appreciate recs -continue home metoprolol -Cardiology followup outpt for nuclear stress testing and EP followup and further evaluation and testing Pt in sinus rhythm on discharge Close Cardiology followup after discharge History of Atrial Fibrillation: Was diagnosed in [place] years ago Had a heart monitor in the past which was normal Gets intermittent palpitations Chest CTA in 07/2022: There is a trace right pleural effusion. No pericardial effusion. 12 mm left thyroid nodule, unchanged Continue home metoprolol, not currently on anticoagulation at home Close cardiology followup after discharge Demand Ischemia Trops elevated 32.9 to 102.2 to 139.3 to 45.8 EKG as above noted SVT on admission Likely demand in setting of above Doubt ACS History of PE: Occurred in 2020 Was on A/C x6 months; Eliquis Provoked by sedentary movement while traveling by car from [place] --> [place] and back again Venous doppler and Chest CTA with no evidence of DVT/PE respectively Hypothyroidism: Thyroid Nodules: TSH on admission: 0.3870 Takes Levothyroxine 88mcg daily;continue Chest CTA 07/2022: 12 mm left thyroid nodule, unchanged. No nodules noted on Chest CTA today Could possibly consider lowering dose of levothyroxine given her borderline hyperthyroid state of TSH. Reports that her dose was increased a few months ago. Follows with Endocrine Close Endocrine followup after discharge HTN: Takes Metoprolol; continue Notes For Next Care Provider Please ensure close followup with Cardiology Please ensure close followup with Endocrinology Medication Changes From Visit None, continue home metoprolol Admission HPI Per Admitting Provider Ms. Olivia is a 62 year old female That woke up this morning and felt dizzy, lightheaded and hot while she was putting her shoes on to go to a weight management office appointment. Upon arrival she started to feel palpitations and to the clinic sent her over to [facility]. In the ED ECG revealed ST depression that appeared to be improving comparatively. She was noted to have monomorphic SVT. Chest x-ray in the ED was negative for acute cardiopulmonary disease. No leukocytosis, electrolytes normal; potassium 3.8, mag 2.0. She was placed on ACLS pads and was given adenosine 6 mg x 1 along with an loading dose of aspirin 324 mg. She converted to normal sinus rhythm after adenosine push. Patient denies any caffeine or energy drink intake. She reports drinking 10-12 bottles of water per day. She does report increased salt use and has consumed 1 vitamin water with lemonade that does have caffeine in it yesterday. Patient has history of PE in 2020 that appears provoked by sedentary sitting for travel as they drive from [place] to [place] often. PMH includes AF, PE (on AC x6 months in 2021), HTN, hypothyrioidism, and GERD. Chest CTA 07/2022: There is a trace right pleural effusion. No pericardial effusion. 12 mm left thyroid nodule, unchanged She denies tobacco, social alcohol use and no recreational drug use including medical marijuana. Most recent ECHO: 11/2022; LV wall motion normal. No signs of AR/MR/TR. Patient denies BOLDEN, fever, chills, cough, recent other travel, visual or auditory changes, dizziness, chest pain, N/V/D, recent falls or trauma. When I walked into the room she was just getting back into bed from walking to the bathroom. She was winded with her sentences but was saturating well and was able to talk in complete sentences. Her shortness of breath resolved momentarily. She is AOx4 and her breath sounds is clear to auscultation. She does have some discomfort in her left popliteal area indicating positive Homans' sign. No redness or erythema. She does note having varicose veins on both of her lower extremities. No pain with ambulation or walking. No wounds or other upper respiratory symptoms. Currently chest pain and palpitations free. Patient will be admitted for further evaluation and management of SVT. Likely troponin elevation suspect this is all related to ischemic demand; as patient converted to NSR after Adenosine x1, will obtain ECHO, trend Trop, given bump in troponin and history will obtain Chest CTA PE protocol, LE US Doppler, gentle IVF, and keep NPO after MN pending any abnormalities on further testing that would warrant cardiac intervention. Could possibly consider lowering dose of levothyroxine given her borderline hyperthyroid state of TSH. Reports that her dose was increased a few months ago. Admission Exam Per Admitting Provider Neuro: AAOx4, PERRLA, no aphagia, memory changes, CNII-XII grossly intact HEENT: head normocephalic, moist mucus membranes CV: S1/S2, (-) M/G/R, (-) edema, cap refill < 3 seconds Resp: Lungs CTA in all galindo. On RA. GI: Abdomen S/NT/ND, Ax4 bowel sounds, (-) CVA tenderness Musculoskeletal: 5/5 B/L UE strength, 5/5 B/L LE strength. No gait disturbance. (+) jason sign RLE. (-) erythema. Skin: (-) rashes , (-) erythema. Psych: euthymic mood Discharge Exam General: Alert, oriented. No acute distress Skin: No noted rashes or bruises Psych: Appropriate mood and affect Neuro: No gross deficits HEENT: NC/AT Chest: Nontender to palpation. CV: RRR Resp: Breath sounds clear bilaterally, no increased effort of breathing. Abdomen: Soft, nontender Extremities: able to move lower extremities Updated Medication List Medication Instructions Recorded Confirmed Type metoprolol succinate 25 mg 25 mg PO QAM 02/16/20 08/31/23 History tablet,extended release 24 hr acetaminophen 500 mg tablet 1,000 mg PO Q6H PRN Pain 08/13/22 08/31/23 History (Tylenol Extra Strength) levothyroxine 88 mcg tablet 88 mcg PO DAILY #90 tabs 03/27/23 08/31/23 Rx Hospital Stay Data Consultations 08/31/23 13:45 ED Decision to Admit Stat 08/31/23 15:00 Consult Cardiology Routine Diagnostic Imagining Performed 08/31/23 14:30 US venous doppler LE BI Routine 08/31/23 14:47 CT angio chest PE protocol Routine Chest X-Ray 08/31/23 10:51 SINGLE VIEW CHEST CLINICAL HISTORY: Dysrhythmia FINDINGS: An AP, portable, upright chest radiograph is compared to study dated 02/12/2021 and correlated with chest CT dated 08/13/2022. The examination is degraded by portable technique and apical lordotic positioning. The heart is mildly enlarged. The pulmonary vasculature is noncongested. The lungs and pleural spaces are clear. No pneumothorax is seen. The bony thorax is grossly intact. IMPRESSION: No acute cardiopulmonary abnormality. ACT 112: Negative or not required by law. Electronically signed by: Ariel Macias M.D. 08/31/2023 11:26 AM Venous Doppler Study 08/31/23 14:30 BILATERAL LOWER EXTREMITY VENOUS DOPPLER HISTORY: Acute pain of the lower legs H/O PE. SVT and R leg pain COMPARISON STUDY: 05/06/2022 FINDINGS: There is normal compressibility, flow, and augmentation within the bilateral lower extremity deep venous systems. IMPRESSION: No DVT within the right or left lower extremity. ACT 112: Negative or not required by law. Electronically signed by: Kenneth Pinto M.D. 08/31/2023 4:51 PM Chest CTA 08/31/23 14:47 CT ANGIOGRAM OF THE CHEST CLINICAL HISTORY: Tachycardia COMPARISON STUDY: Chest CT dated 08/13/2022. Chest x-ray dated 08/31/2023. TECHNIQUE: Following the IV administration of 116 cc of Optiray 320, CT angiogram of the chest was performed from the upper abdomen to the thoracic inlet utilizing the pulmonary embolus protocol. Images are reviewed in the axial, sagittal, and coronal planes. 3-D MIPS images are created and assessed. IV contrast was administered without complication. A dose lowering technique was utilized adhering to the principles of ALARA. CT DOSE: 960.92 mGy.cm FINDINGS: Thyroid: Atrophic. Thoracic aorta: The thoracic aorta is normal in caliber and demonstrates standard 3-vessel arch anatomy. No dissection is seen. Pulmonary vasculature: The pulmonary trunk is normal in caliber. There are no filling defects identified in main, lobar, or segmental pulmonary branches to suggest pulmonary embolus. Heart: The heart is normal in size and without pericardial effusion. There are scattered coronary artery calcifications. Lungs and pleural spaces: There is no airspace consolidation or pleural effusion. The trachea and central airways are clear. Dependent atelectasis is seen at the lung bases. Mediastinum: There is no mediastinal lymphadenopathy. Marta: Clear. Axillae: There is no axillary lymphadenopathy. Upper abdomen: Partially visualized upper abdominal viscera is otherwise within normal limits. Skeletal structures: Cholecystectomy clips are noted. No lytic or blastic bony lesions are seen. IMPRESSION: 1. There is no evidence of pulmonary embolus in the main, lobar, or segmental pulmonary arteries. 2. The lungs are clear. ACT 112: Negative or not required by law. Electronically signed by: Ariel Macias M.D. 08/31/2023 4:14 PM Pending Results Patient Have Any Pending Studies at Discharge: No Discharge Instructions Given to Patient (Per Discharging Provider) Ms. Olivia, You were seen by the restaurant service manager and you are being discharged home. They note that you will require additional testing with Cardiology after discharge. Continue taking your home metoprolol. Please keep close followup with Cardiology after discharge. Please also keep close follow up with your primary care provider after discharge. Please do not hesitate to come back to the emergency room if your symptoms worsen or return. It was a pleasure taking care of you while you were here. Total Time Total Time Spent Total Time Spent (In Minutes): 75
== END 2023-09-01 18:21 | disposition home or self-care (01) | DRG 309 ==
LOC: ED 10:37 → 4W 13:44 → SUATTDRO 13:44 → 4W 18:10